=== PATIENT | female | born 1970 | race Caucasian/White ===

== ENCOUNTER 2022-06-22 16:08 | Outpatient (CLI) | payer OTHER | END 2022-06-22 16:09 | disposition home or self-care (01) | LOC: LAB 16:08 | PROVIDERS: ATTEND Internal Medicine | DX: U07.1 COVID-19 (principal) ==

== ENCOUNTER 2023-01-21 20:43 | Emergency (ER) | payer OTHER ==
[~2023-01-21] VITALS: Ht 160 cm; Wt 99.8 kg
[2023-01-21] MEDS ORDERED: SYNTHROID75 MCG PO (23:06)
== END 2023-01-21 23:49 | disposition home or self-care (01) ==
LOC: ER 20:43
DX: G51.0 Bell's palsy (principal); F41.9 Anxiety disorder, unspecified; I10 Essential (primary) hypertension

== ENCOUNTER 2024-11-27 07:20 | Outpatient (CLI) | payer OTHER ==
[~2024-11-27 07:20] MED LIST: LEVOTHYROXINE25 MCG PO; SYNTHROID75 MCG PO
[2024-11-27 08:16] LABS: HEMATOCRIT 37.6 % (36.0-45.00); HEMOGLOBIN 12.9 g/dL (12.0-15.00); MEAN CELL VOLUME 79.6 fL (80.00-100.00); MEAN CORPUSCULAR HEMOGLOBIN 27.3 pg (27.00-32.0); MEAN CORPUSCULAR HGB CONC 34.3 g/dl (32.0-36.0); PLATELET COUNT 310 K/uL (150-450); RED BLOOD COUNT 4.72 M/uL (4.00-6.00); RED CELL DISTRIBUTION WIDTH 15.6 % (11.5-14.5)
[2024-11-27 09:20] LABS: ALBUMIN 3.5 gm/dL (3.4-5.0); BILIRUBIN TOTAL 0.3 mg/dL (0.3-1.2); CALCIUM 9.1 mg/dL (8.5-10.1); CHOL HDL RATIO 4.4 (0-5.0); CREATININE SERUM 0.9 mg/dL (0.55-1.02); GLOBULINA 4.1 G/DL (2.4-3.5); POTASSIUM 4.34 mEq/L (3.5-5.1); TOTAL PROTEIN 7.6 gm/dL (6.4-8.2)
[2024-11-27 13:40] LABS: ob NEGATIVE (NEGATIVE)
[2024-11-27 14:01] LABS: URINE APPEARANCE Cloudy; URINE BILIRRUBIN Negative (NEGATIVE); URINE BLOOD Negative; URINE COLOR Yellow; URINE GLUCOSE Negative (NEGATIVE); URINE KETONE Trace (NEGATIVE); URINE LEUKOCYTE Trace; URINE NITRATE Positive; URINE PROTEIN Negative (NEGATIVE); URINE UROBILINOGEN 0.2 E.U./dl
[2024-11-27 14:05] LABS: URINE EPITHELIAL CELLS 31.8 uL (0.0-38.8); URINE RBC 24.8 uL (0.0-20.8); URINE WBC 31.8 uL (0.0-23.2)
[2024-11-27 14:17] LABS: URINE BACTERIA > 9821.5 uL (0.0-1933); URINE CAST 0.14 uL (0.0-1.40)
[2024-11-27 14:19] LABS: URINE CRYSTALS FEW /HPF
[2024-11-27 14:20] LABS: URINE YEAST Few /hpf
[2024-11-27 16:47] LABS: T4 TOTAL 6.78 UG/DL (4.8-13.9); TSH 3.92 uIU/mL (0.358-3.74)
== END 2024-11-27 07:23 | disposition home or self-care (01) ==
LOC: LAB 07:20
PROVIDERS: ATTEND Family Medicine
DX: E03.9 Hypothyroidism, unspecified (principal); R73.01 Impaired fasting glucose; D50.0 Iron deficiency anemia secondary to blood loss (chronic); E78.49 Other hyperlipidemia; K92.1 Melena; J03.90 Acute tonsillitis, unspecified

== ENCOUNTER 2024-12-13 07:27 | Outpatient (CLI) | payer OTHER | END 2024-12-13 08:38 | disposition home or self-care (01) | LOC: MAMO-SONO 07:27 | PROVIDERS: ATTEND Family Medicine | DX: N63.0 Unspecified lump in unspecified breast (principal); R10.2 Pelvic and perineal pain ==

== ENCOUNTER 2025-02-27 14:49 | Outpatient (CLI) | payer OTHER ==
[~2025-02-27 14:49] MED LIST changes: +DICLOFENAC POTA50 MG PO; +NORFLEX100MG PO
[2025-02-27 15:23] LABS: BASO % 0.7 % (0.1-1.2); EOS # 0.19 (0.04-0.54); EOS % 2.1 % (0.7-7.0); LYMPH # 2.28 (1.18-3.74); LYMPH % 24.9 % (19.3-53.1); MEAN PLATELET VOLUME 9.00 fl (9.4-12.4); MONO # 0.76 (0.24-0.82); MONO % 8.3 % (4.7-12.5); NEUT # 5.79 (1.56-6.13); NEUT % 63.2 % (34.0-71.1); RED CELL DISTRIBUTION WIDTH 13.7 % (11.6-14.4)
== END 2025-02-27 14:53 | disposition home or self-care (01) ==
LOC: LAB 14:49
PROVIDERS: ATTEND Anesthesiology
DX: Z01.89 Encounter for other specified special examinations (principal)

== ENCOUNTER 2025-04-25 07:23 | Emergency (ER) | payer OTHER ==
[~2025-04-25] VITALS: Ht 157.5 cm; Wt 104.3 kg
[2025-04-25 07:35] VITALS: BP 139/79
[2025-04-25] MEDS ORDERED: KETOROLAC TROMETHAMINE 10 MG TABLET PO ONE ×2 (08:00→08:02)
[2025-04-25] MEDS ORDERED: FAMOtidine 10 MG/ML (4ML VIAL) IV PUSH ONE (08:00)
[2025-04-25] MEDS ORDERED: CEFTRIAXONE SODIUM 1,000 MG VIAL IV ONE (08:00)
[2025-04-25] MEDS ORDERED: CETIRIZINE HCL 5 MG/5 ML ML PO ONE (08:00)
[2025-04-25] MEDS ORDERED: CEFTRIAXONE SODIUM 1,000 MG VIAL ONE (08:03)
[2025-04-25] MEDS ORDERED: FAMOTIDINE/PF 20 MG/2 ML VIAL ONE (08:03)
[2025-04-25] MEDS ORDERED: CETIRIZINE HCL 5MG/5ML BLIST.PACK PO ONE (08:03)
[2025-04-25 08:41] LABS: BASO % 0.4 % (0.1-1.2); EOS # 0.38 (0.04-0.54); EOS % 3.4 % (0.7-7.0); LYMPH # 1.87 (1.18-3.74); LYMPH % 16.6 % (19.3-53.1); MEAN PLATELET VOLUME 9.40 fl (9.4-12.4); MONO # 0.89 (0.24-0.82); MONO % 7.9 % (4.7-12.5); NEUT # 8.05 (1.56-6.13); NEUT % 71.3 % (34.0-71.1); RED CELL DISTRIBUTION WIDTH 14.6 % (11.6-14.4)
[2025-04-25 09:32] LABS: COVID-19 AG NEGATIVE (NEGATIVE)
[2025-04-25] MEDS ORDERED: ZITHROMAX500 MG PO (09:36)
[2025-04-25] MEDS ORDERED: ZYRTEC10 MG PO (09:36)
[2025-04-25] MEDS ORDERED: PEPCID AC20 MG PO (09:36)
[2025-04-25 09:49] VITALS: O2SAT 100
== END 2025-04-25 09:49 | disposition home or self-care (01) ==
LOC: ER 07:23
PROVIDERS: General Practice
DX: J02.9 Acute pharyngitis, unspecified (principal); Z20.822 Contact with and (suspected) exposure to COVID-19

== ENCOUNTER → 2025-06-04 12:47 | Outpatient (CLI) | payer OTHER ==
[~2025-06-04 12:47] MED LIST changes: +PEPCID AC20 MG PO; +ZITHROMAX500 MG PO; +ZYRTEC10 MG PO
[2025-06-04 13:19] LABS: BASO % 0.6 % (0.1-1.2); EOS # 0.25 (0.04-0.54); EOS % 3.0 % (0.7-7.0); LYMPH # 2.64 (1.18-3.74); LYMPH % 31.3 % (19.3-53.1); MEAN PLATELET VOLUME 8.90 fl (9.4-12.4); MONO # 0.77 (0.24-0.82); MONO % 9.1 % (4.7-12.5); NEUT # 4.66 (1.56-6.13); NEUT % 55.3 % (34.0-71.1); RED CELL DISTRIBUTION WIDTH 13.8 % (11.6-14.4)
[2025-06-04 13:21] LABS: URINE APPEARANCE Clear; URINE BILIRRUBIN Negative (NEGATIVE); URINE BLOOD Negative; URINE COLOR Yellow; URINE GLUCOSE Negative (NEGATIVE); URINE KETONE Negative (NEGATIVE); URINE LEUKOCYTE Negative; URINE NITRATE Negative; URINE PROTEIN Negative (NEGATIVE); URINE UROBILINOGEN 0.2 E.U./dl
[2025-06-04 13:27] LABS: URINE BACTERIA 58.7 uL (0.0-1933); URINE EPITHELIAL CELLS 47.9 uL (0.0-38.8); URINE RBC 16.8 uL (0.0-20.8); URINE WBC 50.9 uL (0.0-23.2)
[2025-06-04 13:31] LABS: URINE CAST 0.14 uL (0.0-1.40)
== END | disposition home or self-care (01) ==
LOC: LAB 12:47
PROVIDERS: ATTEND Anesthesiology
DX: Z01.89 Encounter for other specified special examinations (principal)